=== PATIENT | male | born 1950 | race Two or more races ===

== ENCOUNTER 2019-04-01 09:59 | Emergency (ER) | payer MEDICARE, MEDICAID ==
[~2019-04-01] VITALS: Ht 162.6 cm; Wt 70.0 kg
[~2019-04-01 09:59] MED LIST: ACET500T64 PO; FOLI-17 PO; GABA300C10 PO; ONDA4TAB7 PO; PANT40TA5 PO; THIA100T67 PO
[2019-04-01] MEDS ORDERED: FUROSEMIDE 20 MG/2 ML IVPush ONE (10:30)
[2019-04-01] MEDS ORDERED: FUROSEMIDE 20 MG/2 ML ONE (10:59)
[2019-04-01 11:07] LABS: ALANINE AMINOTRANSFERASE 18 U/L (12-78); ALBUMIN 2.4 g/dL (3.4-5.0); ANION GAP 5 mmol/L (5-15); CALCIUM 8.6 mg/dL (8.5-10.1); CHLORIDE 105 mmol/L (98-107); CREATININE 0.87 mg/dL (0.7-1.3)
--- NOTE | 2019-04-01 11:08 | NUR ---
PT RESTING IN BED, LOWER LEGS CONTINUE TO WEEP SEROUS FLUID. ABSORBENT PADS APPLIED TO BED. PT PROVIDED WITH WARM BLANKETS. IV STARTED, LABS DRAWN AND SENT, EKG COMPLETED AT BEDSIDE. PT HAS ALREADY BEEN SHOWERED FOR DECONTAMINATION, ISO CART IN DOORWAY. PT DENIES ANY FURTHER NEEDS OR CONCERNS AT THIS TIME.
[2019-04-01 11:11] LABS: ALKALINE PHOSPHATASE 88 U/L (45-117); BILIRUBIN,TOTAL 0.3 mg/dL (0.2-1.0); TOTAL PROTEIN 9.2 g/dL (6.4-8.2); TROPONIN I < 0.015 ng/mL (0.000-0.045)
--- NOTE | 2019-04-01 11:47 | NUR ---
ASSUMED CARE AT THIS TIME. PT GIVEN URINAL FOR VOID. PT A/OX4. NO NEEDS AT THIS TIME. NADN. ON MONITOR.
[2019-04-01 11:48] VITALS: BP 122/74
--- NOTE | 2019-04-01 11:49 | NUR ---
LAB AT BEDSIDE TO ATTEMPT LAB REDRAW.
[2019-04-01 12:02] LABS: BASOPHILS % (AUTO) 0 % (0-1); EOSINOPHILS # (AUTO) 0.93 x10^3/uL (0-0.4); EOSINOPHILS % (AUTO) 11 % (1-7); LYMPHOCYTES # (AUTO) 1.04 x10^3/uL (1-3.4); LYMPHOCYTES % (AUTO) 12 % (22-44); MD NO; MEAN CORPUSCULAR HEMOGLOBIN 24.7 pg (27.5-34.5); MEAN CORPUSCULAR VOLUME 79.8 fL (81-97); MEAN PLATELET VOLUME 6.5 fL (7.4-10.4); MONOCYTES # (AUTO) 0.49 x10^3/uL (0.2-0.8); MONOCYTES % (AUTO) 6 % (2-9); NEUTROPHILS # (AUTO) 6.03 x10^3/uL (1.8-6.8); NEUTROPHILS % (AUTO) 71 % (42-75); PLATELET COUNT 375 x10^3/uL (130-400); RED BLOOD COUNT 4.04 x10^6/uL (4.38-5.82); RED CELL DISTRIBUTION WIDTH 20.4 % (9.4-14.8)
[2019-04-01] MEDS ORDERED: PERMETHRIN CRM 5%, 60GM TP SCH (12:30)
--- NOTE | 2019-04-01 13:01 | NUR ---
Patient/Caregiver given discharge instructions and they have confirmed that they understand the instructions. Patient ambulatory with steady gait.
== END 2019-04-01 13:03 | disposition home or self-care (01) ==
LOC: ED 10:30
DX: R60.0 Localized edema (principal); I50.9 Heart failure, unspecified; B86 Scabies; I10 Essential (primary) hypertension; E11.9 Type 2 diabetes mellitus without complications
CPT/HCPCS: 36415; 71045; 80053; 83880; 84484; 85025; 93005; 96374; 99284; J1940

== ENCOUNTER 2019-10-15 14:44 | Emergency (ER) | payer MEDICAID, MEDICARE ==
[~2019-10-15] VITALS: Ht 162.6 cm; Wt 66.0 kg
--- NOTE | 2019-10-15 14:59 | NUR ---
PT BIB [facility]. PT WAS FOUND SLEEPING IN THE SUN IN A DIRT LOT. PT WAS FOUND WITH A SHARPS CONTAINER WITH USED NEEDLES INSIDE. PT STATES HE USES IV METH. PT FOUND TO HAVE ORAL TEMP OF 103.6 PER EMS. ICE PACK APPLIED TO CHEST. PT REFUSING TO TAKE OF CLOTHES. CONTINUATION OF EMS 1 LITER BOLUS. WET TOWELS AND ICE PACKS APPLIED TO PT. NIBP AND O2 MONITORING IN PLACE.
[2019-10-15] MEDS ORDERED: SODIUM CHLORIDE FLUSH 10ML SYR IVF ONE (15:30)
[2019-10-15] MEDS ORDERED: ACETAMINOPHEN 500 MG TABLET PO ONE (15:30)
[2019-10-15] MEDS ORDERED: SODIUM CHLORIDE 0.9% 1,000ML IVBOLUS ONE (15:30)
[2019-10-15 16:13] LABS: BASOPHILS % (AUTO) 0 % (0-1); EOSINOPHILS % (AUTO) 0 % (1-7); LYMPHOCYTES # (AUTO) 0.37 x10^3/uL (1-3.4); LYMPHOCYTES % (AUTO) 5 % (22-44); MD NO; MEAN CORPUSCULAR HEMOGLOBIN 25.9 pg (27.5-34.5); MEAN CORPUSCULAR HGB CONC 31.9 g/dL (33.2-36.2); MEAN CORPUSCULAR VOLUME 81.4 fL (81-97); MEAN PLATELET VOLUME 6.5 fL (7.4-10.4); MONOCYTES % (AUTO) 4 % (2-9); NEUTROPHILS % (AUTO) 92 % (42-75); PLATELET COUNT 172 x10^3/uL (130-400); RED CELL DISTRIBUTION WIDTH 21.1 % (9.4-14.8)
[2019-10-15] MEDS ORDERED: ACETAMINOPHEN 500 MG TABLET ONE (16:24)
[2019-10-15 16:25] LABS: ALANINE AMINOTRANSFERASE 14 U/L (12-78); ALBUMIN 2.8 g/dL (3.4-5.0); ANION GAP 7 mmol/L (5-15); CALCIUM 8.2 mg/dL (8.5-10.1); CHLORIDE 104 mmol/L (98-107); CREATININE 1.36 mg/dL (0.7-1.3); SALICYLATE LEVEL < 1.7 mg/dL (2.8-20.0)
[2019-10-15 16:27] LABS: ALKALINE PHOSPHATASE 103 U/L (45-117); BILIRUBIN,TOTAL 0.8 mg/dL (0.2-1.0); TOTAL PROTEIN 8.2 g/dL (6.4-8.2)
[2019-10-15 16:36] VITALS: BP 132/74
--- NOTE | 2019-10-15 16:39 | NUR ---
PT SLEEPIMG, CONT COOLING MEASURES AROUSES TO VOICE
[2019-10-15] MEDS ORDERED: CEFTRIAXONE PMX 1GM/50ML 50 ML IVPB ONE (17:00)
[2019-10-15] MEDS ORDERED: CEFTRIAXONE 1,000 MG ONE (17:12)
--- NOTE | 2019-10-15 17:20 | NUR ---
PT FOUND WALKING IN HALLWAY. PT PULLING IV OUT OF ARM. PT WAS STOPPED FROM COMPLETING ACTION BUT IV WAS NOT VIABLE. PT WISHING TO LEAVE AT THIS TIME. UNABLE TO CONVINCE PT TO STAY. MADE AWARE. PT TO RECIEVE IM ANTIBIOTICS IN PLACE OF IV. PT GIVEN D/C INSTRUCTIONS AND RX FOR ABX. PT EXPLAINED BY AND THIS RN THAT HE HAS PNA AND NEEDS TO COMPLETE ABX. PT CONTACTED BROTHER VIA CELL PHONE AND STATES BROTHER IS TO PICK HIM UP.
[2019-10-15] MEDS ORDERED: CEFTRIAXONE 1,000 MG IM ONE (17:30)
== END 2019-10-15 17:25 | disposition home or self-care (01) ==
LOC: ED 16:27
DX: J15.9 Unspecified bacterial pneumonia (principal); R00.0 Tachycardia, unspecified; I10 Essential (primary) hypertension; E11.9 Type 2 diabetes mellitus without complications
CPT/HCPCS: 36415; 71045; 80053; 80307; 82140; 83605; 85025; 87040; 93005; 96372; 99285; J0696; J7030